=== PATIENT | female | born 1960 | race Caucasian/White ===

== ENCOUNTER 2018-11-03 05:42 | Inpatient (IN) | payer OTHER ==
[2018-10-25 11:47] LABS: HEMATOCRIT 43.3 % (37.0-47.0); HEMOGLOBIN 14.5 gm/dL (12.0-15.0); MCH 30.7 pg (26.0-34.0); MCHC 33.5 g/dL (28.0-37.0); MCV 91.5 fL (80.0-100.0); RBC 4.74 mil/uL (4.20-5.00); RDW 13.3 % (10.5-14.5); WBC 5.6 thou/uL (4.0-11.0)
[2018-10-25 11:48] LABS: URINE BILIRUBIN NEGATIVE (Negative); URINE BLOOD NEGATIVE (Negative); URINE CLARITY CLEAR; URINE COLOR YELLOW; URINE GLUCOSE-RANDOM* NEGATIVE (Negative); URINE KETONES NEGATIVE (Negative); URINE LEUKOCYTES-REFLEX TRACE (Negative); URINE NITRITE-REFLEX NEGATIVE (Negative); URINE PROTEIN (DIPSTICK) NEGATIVE (Negative); URINE SPECIFIC GRAVITY 1.025 (1.005-1.035)
[2018-10-25 11:57] LABS: ALBUMIN 3.9 g/dL (3.4-5.0); CALCIUM 9.5 mg/dL (8.5-10.1); CREATININE 0.7 mg/dL (0.6-1.0); POTASSIUM 4.5 mmol/L (3.5-5.1)
[2018-10-25 11:59] LABS: PROTIME 9.6 Seconds (9.3-11.4)
[2018-10-26 12:06] LABS: GLYCOHEMOGLOBIN (HGB A1C) 7.3 % (4.8-5.6)
[~2018-11-03] VITALS: Ht 165.1 cm; Wt 112.0 kg
--- NOTE | ~2018-11-03 | O ---
[facility] [place] [address] OPERATIVE REPORT Name: FLOYD VEGA Room #: 449-I ADM IN M.R.#: [id number] Admission: 11/03/18 ������������������ Attend Phys: Chris Holman MD Discharge: ������������������ Date of : 58 Report #: [id number] THIS REPORT FOR: //name// CC: Abhijit Holman DATE OF SERVICE: 11/03/2018 PREOPERATIVE DIAGNOSIS: Left hip osteoarthritis. POSTOPERATIVE DIAGNOSIS: Left hip osteoarthritis. PROCEDURE: Left total hip arthroplasty. SURGEON: Chris Holman MD MAINTENANCE MGR: None. ANESTHESIA: General. IMPLANTS: Varner and Nephew size 10 high offset Synergy press fit stem, size 52 R3 acetabular cup and a size 36+4 Oxinium head. ESTIMATED BLOOD LOSS: 150 mL. COMPLICATIONS: None. SPECIMENS: None. CONDITION UPON LEAVING THE OPERATING ROOM: Stable. INDICATIONS FOR PROCEDURE: The patient is a 58-year-old female with severe left hip osteoarthritis. She has failed conservative measures for this and after discussion with her, she elected for a left total hip arthroplasty. DESCRIPTION OF PROCEDURE: Risks, benefits, alternatives, and complications were discussed in detail with the patient including but not limited to risk of anesthesia; risk of damage to nerves, arteries, blood vessels; risk for infection, bleeding; risk for continued hip pain, leg length discrepancy, instability and need for reoperation. Informed consent was obtained from the patient. The left hip was appropriately marked in the preoperative holding area. IV Ancef was given for preoperative antibiotics. She was brought to the operating room and placed in the supine position on the operating room table. General anesthesia was induced without complication. She was then placed in the right lateral decubitus position with the left hip uppermost. Left hip and lower extremity were prepped and draped in normal sterile fashion. Timeout was [facility] [address] [place] [address] OPERATIVE REPORT Name: FLOYD VEGA Room #: 449-I [facility] IN .R.#: [id number] Admission: 11/03/18 ������������������ Attend Phys: Chris Holman MD Discharge: ������������������ Date of : 58 Report #: [id number] performed properly identifying the patient and procedure as well as the instrumentation, all in the operating room were in agreement. Standard posterior approach to the hip was made with 10 blade through the skin. Dissection was taken down the fascia with Bovie cautery and Purcell elevator was used to clean off the fascia. Fresh 10 blade was used to make a fascial incision and this was taken proximally and distally with curved Doss scissor. Charnley retractor was placed. Trochanteric bursa was taken down with Bovie cautery. Piriformis tendon was identified, tagged and taken down with Bovie. Short external rotators were also taken down with Bovie cautery. Capsulotomy was made and capsule ends were tagged for later repair. Hip was dislocated and there was extensive osteoarthritic change of the femoral head. Femoral neck cut was made 1 cm proximal to lesser trochanter based on preoperative templating and the femoral head removed. Deep acetabular retractors were placed labrum was removed sharply. Pulvinar was removed with Bovie cautery. Acetabulum was then sequentially reamed up to a size 52, at which point there was excellent bleeding cancellous bone. This was trialed with a size 51 and found to have a good fit. A final size 52 R3 acetabular cup was then placed and seated. One acetabular screw was placed for backup fixation and a polyethylene liner for a 36 head was placed. Attention was then turned to the femur, this was reamed and broached up to a size 10, at which point, a size 10 broach was . This was trialed with a high offset neck and a 36+0 head. Hip was reduced, taken through range of motion, found to be somewhat short on the left compared to the right and it was felt that we could make up for this with the final implant. Hip was dislocated, broach was removed and a final size 10 high offset Synergy press fit stem was placed and seated. This was then trialed with a 36+4 head. Hip was reduced, taken through range of motion, found to be stable, found to have good leg lengths. Hip was dislocated and a final size 36+4 Oxinium head was placed. Hip was reduced, taken through range of motion, found to be stable, found to have equal leg lengths. The wound was thoroughly irrigated with normal saline. Periarticular injection consisting of morphine, ropivacaine, epinephrine and Toradol was placed around the hip joint capsule. A gram of vancomycin was placed deep in the joint. The capsule and piriformis were repaired with 0 FiberWire. Fascia was closed with 0 Vicryl, skin was closed with 2-0 Vicryl and 3-0 Monocryl. Dermabond and a SUSIE dressing was applied. The patient tolerated this procedure well and went to the recovery room under the care of anesthesia postoperatively. ��������������������������������������������� ���������������������������������������� By: ��������������������������������������������� 1717 [id number] Chris Holman MD /christiana
[~2018-11-03 05:42] MED LIST: ALLOPURINOL 30300 M1 PO; ALTACE 1.25 M1.25 MG PO; BIAXIN 500 MG500 M2 PO; CYMBALTA60 MG PO; GLUCOPHAGE1000 MG PO; LEXAPRO20 MG PO; LIORESAL 10 MG10 MG PO; MOBIC15 MG PO; NEURONTIN 300300 M1 PO; NEURONTIN 400400 M1 PO; NEURONTIN600 MG PO; PREDNISONE10 MG PO; TRAMADOL 50 MG50 MG PO; TRILEPTAL 300300 MG PO; VENLAFAXINE HCL50 MG PO; VICTOZA0.6 MG/0.1
[2018-11-03 13:48] VITALS: BP 121/75
[2018-11-03 19:06] VITALS: BP 137/71
[2018-11-03 20:15] VITALS: BP 127/74
[2018-11-03 21:00] VITALS: BP 126/74
[2018-11-03 22:00] VITALS: BP 145/75
[2018-11-03 23:00] VITALS: BP 124/72
[2018-11-04 00:01] VITALS: BP 127/72
--- NOTE | 2018-11-04 02:12 | NUR ---
Assumed pt care at 1900. Pt A/OX4, pleasant mood. Hip replacement precautions reinforced. C/o pain LOP 08/25 medicated per EMAR with relief reported. Up with assist of 1 RW/GB,WBAT to LLE.SUSIE dsg in place C/D/I. VSS Resting O2 @ 2L/NC no distress. Fall px implemented.
[2018-11-04 04:05] VITALS: BP 115/68
[2018-11-04 05:39] LABS: HEMATOCRIT 31.4 % (37.0-47.0); HEMOGLOBIN 10.4 gm/dL (12.0-15.0); MCH 30.8 pg (26.0-34.0); MCHC 33.2 g/dL (28.0-37.0); MCV 92.7 fL (80.0-100.0); RBC 3.39 mil/uL (4.20-5.00); RDW 12.8 % (10.5-14.5); WBC 12.2 thou/uL (4.0-11.0)
[2018-11-04 07:39] VITALS: BP 119/70
[2018-11-04] MEDS ORDERED: ASPIR 8181 MG PO (11:54)
--- NOTE | 2018-11-04 13:35 | NUR ---
PT ADMITTED RELATED TO LT THR. CM REVIEWED CHART AND SPOKE WITH CARE TEAM. CM MET WITH PT AT BEDSIDED THIS DAY. PT IS A&O X4. CM ROLE INTRODUCED. PT INDICATED SHE LIVES IN A TRAILER WITH HER SPOUSE WITH 5 STEPS TO ENTER AND NO STEPS INSIDE. 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 PT WILL NEED A FWW ISSUED THROUGH [employer]. PT IS EATABLISHED WITH OP PT APPOINTMENT AT [facility] IN [place]. PT ANTICPATES RETURNING HOME THIS DAY. PT WAS ISSUED A FWW. NO OTHER CM INTERVENTION INDICATED. CASE CLOSED.
[2018-11-04 15:21] VITALS: BP 119/70
--- NOTE | 2018-11-04 16:00 | NUR ---
PATIENT ALERT AND ORIENTED. PATIENT DISCHARGED TO HOME IN STABLE CONDITION WITH DISCHARGE INSTRUCTIONS AND PRESCRIPTIONS AND ALL PERSONAL BELONGINGS. PATIENT AND BEDSIDE AND UPON DISCHARGE TRANSPORT PATIENT TO HOME.
== END 2018-11-04 16:01 | disposition home or self-care (01) | DRG 470 ==
LOC: TBA 05:42 → PRE 05:42 → 4W 05:42 → PRE 05:43 → 4W 18:34 → ENTRNSPT 11-04 15:46 → EDTRNSPTSTS 11-04 15:49 → 4W 11-04 16:01
PROVIDERS: ADMIT Orthopaedic Surgery
PROC: 0SRB06A Replacement of Left Hip Joint with Oxidized Zirconium on Polyethylene Synthetic Substitute, Uncemented, Open Approach (ICD-10-PCS; principal; 2018-11-03)
DX: M16.12 Unilateral primary osteoarthritis, left hip (principal)
CPT/HCPCS: 10047; 50010; 50101; 50382; 50414; 53000; 53078; 53368; 54118; 56524; 56527; 56528; 56530; 57095; 57103; 62110; 62900; 70005

== ENCOUNTER → 2018-11-18 | Day surgery (SDC) | payer OTHER ==
[~2018-11-18] MED LIST changes: +ASPIR 8181 MG PO
--- NOTE | ~2018-11-18 | O ---
[facility] [place] [address] OPERATIVE REPORT Name: FLOYD VEGA Room #: REG [facility]..#: [id number] Admission: 11/18/18 ������������������ Attend Phys: Chris Holman MD Discharge: ������������������ Date of : 58 Report #: [id number] THIS REPORT FOR: //name// CC: Abhijit Holman DATE OF SERVICE: 11/18/2018 PREOPERATIVE DIAGNOSIS: Left hip postoperative hematoma. POSTOPERATIVE DIAGNOSIS: Left hip postoperative hematoma. PROCEDURE: Evacuation of left hip hematoma. SURGEON: Chris Holman MD. SWITCH HOUSE OPERATOR: Adrianna Henley PA-C. ANESTHESIA: LMA. ESTIMATED BLOOD LOSS: 25 mL. COMPLICATIONS: None. SPECIMENS: None. CONDITION UPON LEAVING THE OPERATING ROOM: Stable. INDICATIONS FOR PROCEDURE: The patient is a 58-year-old female who is 2 weeks out from a left total hip arthroplasty. She has had continued serosanguineous drainage from her left hip incision and it was determined that she had a postop hematoma. After discussion with she and her , they elected for evacuation of left hip hematoma. DESCRIPTION OF PROCEDURE: Risks, benefits, alternatives, complications were discussed in detail with the patient including but not limited to risk of anesthesia; risk of damage to nerves, arteries, blood vessels; risk for infection, bleeding; risk for continued hip pain and need for reoperation. Informed consent was obtained from the patient. Left hip was appropriately marked in the preoperative holding area. IV Ancef was given for preoperative antibiotics. She was brought to the operating room and placed in the supine position on the operating room table. LMA anesthesia was induced without complication. She was then placed in the right lateral decubitus position with left hip uppermost. Left hip and lower extremity were prepped and draped in normal sterile fashion. Timeout was performed, properly identifying the patient and procedure as well as the instrumentation. All in the operating room were in [address] [address] OPERATIVE REPORT Name: FLOYD VEGA Room #: REG [facility] [place].#: [id number] Admission: 11/18/18 ������������������ Attend Phys: Chris Holman MD Discharge: ������������������ Date of : 58 Report #: [id number] agreement. The previous incision was then opened and upon entering the adipose layer, a large liquefying hematoma was evacuated. This was suctioned out and the fascial incision was visualized and evaluated. The fascial closure was intact and this was left alone. The potential space of the hematoma was then thoroughly irrigated with normal saline. There was no active bleeding noted. A Hemovac drain was placed. The adipose layer was closed with interrupted 0 Vicryl suture. Skin was closed with 2-0 Vicryl and skin abimael and a SUSIE dressing was applied. The patient tolerated this procedure well and went to recovery room under care of anesthesia postoperatively. ��������������������������������������������� ���������������������������������������� By: ��������������������������������������������� 1101 1116 Chris Holman MD /nt
[2018-11-18 08:51] LABS: HEMATOCRIT 33.1 % (37.0-47.0); HEMOGLOBIN 11.3 gm/dL (12.0-15.0); MCH 31.1 pg (26.0-34.0); MCHC 34.2 g/dL (28.0-37.0); RBC 3.64 mil/uL (4.20-5.00); RDW 13.7 % (10.5-14.5); WBC 6.4 thou/uL (4.0-11.0)
== END | disposition home or self-care (01) ==
LOC: OR 08:04
PROVIDERS: Student in an Organized Health Care Education/Training Program
DX: M96.840 Postprocedural hematoma of a musculoskeletal structure following a musculoskeletal system procedure (principal); M16.12 Unilateral primary osteoarthritis, left hip; Z96.642 Presence of left artificial hip joint; Z79.899 Other long term (current) drug therapy; Y83.8 Other surgical procedures as the cause of abnormal reaction of the patient, or of later complication, without mention of misadventure at the time of the procedure
CPT/HCPCS: 50010; 50101; 50382; 50414; 51412; 53078; 56528; 57095; 57103; 62110; 62900; 70005

== ENCOUNTER 2019-01-05 10:44 | Inpatient (IN) | payer OTHER ==
--- NOTE | ~2019-01-05 | O ---
[facility] [place] [address] OPERATIVE REPORT Name: FLOYD VEGA Room #: 432-P ADM IN M.R.#: [id number] Admission: 01/05/19 Attend Phys: Chris Holman MD Discharge: Date of : 58 Report #: [id number] THIS REPORT FOR: //name// CC: Abhijit Holman DATE OF SERVICE: 01/05/2019 PREOPERATIVE DIAGNOSIS: Painful left total hip arthroplasty with suspicion for loose femoral stem. POSTOPERATIVE DIAGNOSIS: Loose femoral stem, left total hip arthroplasty. PROCEDURE: Revision left total hip arthroplasty stem only. SURGEON: Chris Holman MD. HOUSE CARPENTER HELPER: Adrianna Henley PA-C. INDICATIONS FOR HOUSE CARPENTER HELPER: Throughout the case, extensive retraction and manipulation was required including dislocation and reduction of the hip. This was afforded to me by my medical assistant secretary. ANESTHESIA: LMA. IMPLANTS: Varner and Nephew size 13 high offset Synergy press-fit stem with a 36+0 Oxinium head. ESTIMATED BLOOD LOSS: 100 mL. COMPLICATIONS: None. SPECIMENS: None. CONDITION UPON LEAVING THE OPERATING ROOM: Stable. INDICATIONS FOR PROCEDURE: The patient is a 58-year-old female who is about 2 months out from a left total hip arthroplasty. She initially did well after her arthroplasty but had an episode where she was performing physical therapy and twisted and felt a pop in her hip. She had increasing groin pain and thigh pain since that time. CT scan was performed and was negative for fracture. However given her symptoms and history, it was consistent with loosening of her femoral stem and after discussion with her, she elected for revision total hip arthroplasty. DESCRIPTION OF PROCEDURE: Risks, benefits, alternatives, complications were [facility] [address] [place] [address] OPERATIVE REPORT Name: FLOYD VEGA Room #: 432-P ADM IN M.R.#: [id number] Admission: 01/05/19 Attend Phys: Chris Holman MD Discharge: Date of : 58 Report #: [id number] discussed in detail with the patient including but not limited to risk of anesthesia, risk of damage to nerves, arteries, blood vessels, risk for infection, bleeding, risk for continued hip pain, leg length discrepancy, instability and need for reoperation. Informed consent was obtained from the patient. Left hip was appropriately marked in the preoperative holding area. IV Ancef was given for preoperative antibiotics. She was brought to the operating room and placed in supine position on operating room table. LMA anesthesia was induced without complication. She was then placed in the right lateral decubitus position with the left hip uppermost. Left hip and lower extremity were prepped and draped in normal sterile fashion. Timeout was performed properly identifying the patient and procedure as well as the instrumentation. Standard posterior approach to the hip was made with 10 blade through the skin. Dissection was taken down to the fascia with Bovie cautery and fresh fascial incision was made with #10 blade. This was taken proximally and distally with curved Doss scissor. There was a seroma noted deep in the hip, but there are no signs of infection. The posterior capsule had actually healed to the greater trochanter and this was taken down with Bovie cautery. Hip was dislocated and the femoral head was removed. A slap hammer was placed on the femoral stem and this was easily backed out. There were no signs of bony ingrowth and there was fibrous tissue surrounding the proximal portion of the stem. It was felt that there was fibrous ingrowth and that there never would have been stability of this particular stem. After this, the femur was reamed and broached up to a size 13, at which point, the size 13 broach was stable, was trialed with a high offset neck and a 36+0 head. Hip was reduced, taken through range of motion, found to be stable, found to have equal leg lengths. Hip was dislocated. Broach was removed and final size 13 high offset Synergy press fit stem was placed. This was then trialed again with a 36+0 head. Hip was reduced, taken through range of motion, found to be stable, found to have equal leg lengths. Hip was dislocated one last time and a final 36+0 Oxinium head was placed. Hip was reduced, taken through range of motion, found to be stable, found to have equal leg lengths. A gram of vancomycin was placed deep in the joint. Periarticular injection consisting of morphine, ropivacaine, epinephrine and Toradol was placed around the hip joint capsule. The capsule was repaired with 0 FiberWire. Deep drain was placed. Fascia was closed with 0 Vicryl, skin was closed with 2-0 Vicryl and skin staple. Soft dressing of SUSIE dressing was applied. The patient tolerated this procedure well and went to recovery room under care of anesthesia postoperatively. By: [id number] Chris Holman MD /christiana
[2019-01-05 13:29] VITALS: BP 153/94
[2019-01-05 15:46] VITALS: BP 131/75
[2019-01-05 17:32] VITALS: BP 144/71
--- NOTE | 2019-01-05 18:23 | NUR ---
PT TRANSFERED TO 432 IN BED FROM PACU. A&OX4, IV INTACT IN L HAND. SUSIE DRSG C/D/I. HEMOVAC INTACT. PT MEDICATED FOR MED AT THIS TIME. TOLERATING PO/DIET WELL. PT HAS VOIDED POST OP PER BEDPAN. IV CONT FLUIDS AND IVAB STARTED. WILL CONT POC
[2019-01-05 19:15] VITALS: BP 134/63
--- NOTE | 2019-01-05 21:43 | NUR ---
BLOOD SUGAR 343, PT CLAIMING IT IS HIGH BECAUSE SHE JUST ATE CANDY BAR, WILL RECHECK IT.
[2019-01-05 23:23] VITALS: BP 127/70
--- NOTE | 2019-01-06 02:43 | NUR ---
PT RESTLESS AT START OF SHIFT, PAIN NOT REALLY CONTROLLED. PAIN REGIMEN TONIGHT INCLUDES ALTERNATING HYDROXYZINE AND OXY. FINALLY ABLE TO GET SOME SLEEP, ABDUCTOR WEDGE WAS APPLIED. TEDS/SCDS ON, HIP PRECAUTIONS OBSERVED. VOIDING PER BEDPAN TONIGHT, REFUSED TO GET UP TO VOID, HIP DRESSING TO LEFT HIP CDI, HEMOVAC PATENT, HOURLY ROUNDING, MONITORED.
[2019-01-06 03:30] VITALS: BP 131/72
[2019-01-06 05:32] LABS: HEMOGLOBIN 11.4 gm/dL (12.0-15.0); MCH 30.4 pg (26.0-34.0); MCHC 32.6 g/dL (28.0-37.0); RBC 3.76 mil/uL (4.20-5.00); RDW 13.3 % (10.5-14.5); WBC 11.6 thou/uL (4.0-11.0)
--- NOTE | 2019-01-06 06:17 | NUR ---
DRAIN PULLED, PRESSURE APPLIED DUE TO BLEEDING NOTED TO ONE SITE, THEN SITE WAS COVERED WITH GAUZE AND TEGADERM. PT TOLERATED PROCEDURE.
[2019-01-06 07:50] VITALS: BP 134/79
--- NOTE | 2019-01-06 13:24 | NUR ---
PT ADMITTED RELATED TO LT THR REVISION. CM REVIEWED CHART AND SPOKE WITH CARE TEAM. CM MET WITH PT AT BEDSIDE THIS DAY. PT IS A&O X4. CM ROLE INTRODUCED. PT INDICATED SHE LIVES IN A MOBILE HOME WITH HER SPOUSE WITH 5 STEPS TO ENTER AND NO STEPS INSIDE. 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 PT ALSO HAS CPAP. PT INDICATED SHE IS ESTABLISHED WITH OP PT AT [facility] IN [place].PT ANTICIPATES DISHCARGING HOME TOMORROW. CM TO FOLLOW INDICATED WITH DC PLANNING.
[2019-01-06 16:51] VITALS: BP 124/56
[2019-01-06 19:24] VITALS: BP 146/67
--- NOTE | 2019-01-06 20:05 | NUR ---
ASSUMED CARE OF PATIENT AT 0715, PATIENT ALERT AND ORIENTED X4. PATIENT UP WITH ASSIST X 1 WITH WALKER TO BATHROOM, AND UP TO CHAIR X 2 THIS SHIFT. PATIENT WORKED WITH PHYSICAL THERAPY X 2 THIS SHIFT. PAIN LEVEL CONSTANT, RECEIVING OXYCODONE 1 TABLET, NORCO, AND NEW ORDER FOR OXYCODONE 2 TABS AND MS CONTIN 15MG BID SCHEDLUED RECEIVED THIS SHIFT. PATIENT HAD LEFT HIP REVISION, WITH SUSIE DRESSING IN PLACE, C/D/I. PATIENT HAS LEFT HAND IV IN PLACE, IV FLUIDS D/C THIS AM AFTER 2ND BAG COMPLETED. ABAD HOSE, ABDUCTION PILLOW, EDUCATION ON HIP PRECAUTIONS THIS SHIFT. BLOOD SUGAR MONITORING ORDERED, CONTROLLED BY DIET. POSSIBLE DISCHARGE TOMORROW. WILL CONTINUE TO MONITOR.
[2019-01-07 05:03] VITALS: BP 134/66
[2019-01-07 05:51] LABS: HEMOGLOBIN 11.7 gm/dL (12.0-15.0); MCH 30.3 pg (26.0-34.0); MCHC 32.5 g/dL (28.0-37.0); MCV 93.2 fL (80.0-100.0); RBC 3.86 mil/uL (4.20-5.00); RDW 13.4 % (10.5-14.5); WBC 9.3 thou/uL (4.0-11.0)
[2019-01-07 07:40] VITALS: BP 112/64
--- NOTE | 2019-01-07 07:49 | NUR ---
ASSUMED CARE OF PT @1900. PT A&OX4. ASSESSMENT BENIGN. DRESSING ON LEFT HIP DRY, CLEAN AND INTACT. PT C/O OF 08/25 PAIN. USES A WALKER TO THE BATHROOM WITH 1STANDBY. USES THE CALL SUAZO APPROPRAITELY. CALL SUAZO WITHIN REACH
--- NOTE | 2019-01-07 14:27 | NUR ---
PT AWAITING D/C NOW THAT CYNDEE IN THERAPY DISMISSED HER. LET HER KNOW D/C COULD TAKE A BIT. SHE'S VISITING W/SPOUSE AND IS SATISFIED W/DISCHARGE WHEN ABLE
[2019-01-07 15:39] VITALS: BP 114/76
--- NOTE | 2019-01-07 16:38 | NUR ---
CARE TEAM INDICATED THAT PT IS STILL HAVING LOTS OF PLAIN. NO DC TODAY. PT IS ESTABLISHED WITH OP PT AND HAS ALL NEEDED DME. PT WILL HAVE NO NEEDS UPON DC.
--- NOTE | 2019-01-07 16:40 | NUR ---
FLOATING TO ANOTHER FLOOR, GAVE REPORT TO FOLLOWING RN
[2019-01-07 19:05] VITALS: BP 148/76
--- NOTE | 2019-01-08 01:10 | NUR ---
ASSUMED CARE OF PT @1900. ASSESSMENT COMPLETED. PT C/O OF 08/25 PAIN AND WAS MEDICATED ORDERED. R HIP DRESSING; CLEAN, DRY AND INTACT. PT IS ABLE TO AMBULATE WITH A WALKER AND STANDBY ASSIST. CALL APPROPRAITELY. CALL SUAZO WITHIN REACH
[2019-01-08 04:35] VITALS: BP 141/94
[2019-01-08 05:03] LABS: HEMATOCRIT 35.7 % (37.0-47.0); HEMOGLOBIN 11.7 gm/dL (12.0-15.0); MCH 30.4 pg (26.0-34.0); MCHC 32.8 g/dL (28.0-37.0); MCV 92.7 fL (80.0-100.0); RBC 3.85 mil/uL (4.20-5.00); RDW 13.4 % (10.5-14.5); WBC 6.9 thou/uL (4.0-11.0)
[2019-01-08 07:31] VITALS: BP 119/73
[2019-01-08] MEDS ORDERED: ASPIR 8181 MG PO (08:30)
[2019-01-08] MEDS ORDERED: PERCOCET 10-321 EACH PO (08:31)
[2019-01-08] MEDS ORDERED: OXYCONTIN10 M1 PO (08:31)
[2019-01-08 12:12] VITALS: BP 119/73
--- NOTE | 2019-01-08 12:46 | NUR ---
ASSUMED CARE OF PATIENT AT 0715, PATIENT ALERT AND ORIENTED X 4. PATIENT UP WITH SBA WITH WALKER. PATIENT HAS LEFT HIP SUSIE DRESSING C/D/I. PATIENT C/O PAIN LEFT HIP AREA, PAIN LEVEL 3/10. OXYCODONE 2 TABS GIVEN THIS AM, WITH GOOD RELIEF. PATIENT HAD LEFT HAND IV, REMOVED PRIOR TO DISCHARGE. PATIENT DISCHARGE TO HOME. ALL DISCHARGE PAPERWORK AND ALL PERSONAL BELONGINGS SENT WITH THE PATIENT. HERE TO TRANSPORT PATIENT HOME.
== END 2019-01-08 13:37 | disposition home or self-care (01) | DRG 468 ==
LOC: 4E 10:44 → TBA 10:44 → 4E 15:18
PROVIDERS: ADMIT Orthopaedic Surgery
DX: T84.031A Mechanical loosening of internal left hip prosthetic joint, initial encounter (principal); G47.33 Obstructive sleep apnea (adult) (pediatric); E11.9 Type 2 diabetes mellitus without complications; G89.29 Other chronic pain; Z79.899 Other long term (current) drug therapy; Y83.8 Other surgical procedures as the cause of abnormal reaction of the patient, or of later complication, without mention of misadventure at the time of the procedure; Y92.89 Other specified places as the place of occurrence of the external cause
CPT/HCPCS: 10783; 50010; 50101; 50382; 50414; 53000; 53078; 54118; 55389; 56524; 56527; 56528; 56530; 57095; 57103; 62110; 62900; 70005

== ENCOUNTER 2019-03-16 20:04 | Emergency (ER) | payer OTHER ==
[~2019-03-16] VITALS: Ht 165.1 cm; Wt 112.5 kg
[~2019-03-16 20:04] MED LIST changes: +OXYCONTIN10 M1 PO; +PERCOCET 10-321 EACH PO
[2019-03-16 21:23] LABS: ABSOLUTE NEUTROPHILS 6.8 thou/uL (1.4-8.2); BASOPHILS 0.3 % (0.0-2.0); EOSINOPHILS 0.8 % (0.0-3.0); HEMATOCRIT 41.3 % (37.0-47.0); HEMOGLOBIN 13.7 gm/dL (12.0-15.0); LYMPHOCYTES 5.7 % (24.0-44.0); MCH 30.3 pg (26.0-34.0); MCHC 33.3 g/dL (28.0-37.0); MONOCYTES 6.7 % (1.0-8.0); PLATELET COUNT 289 thou/uL (150-400); POLYS 86.5 % (36.0-66.0); RBC 4.53 mil/uL (4.20-5.00); RDW 13.8 % (10.5-14.5); WBC 7.9 thou/uL (4.0-11.0)
[2019-03-16 21:36] LABS: ANION GAP 10 mmol/L (7-16); BUN 11 mg/dL (7-18); CALCIUM 9.3 mg/dL (8.5-10.1); CHLORIDE 100 mmol/L (98-107); CO2 26 mmol/L (21-32); CREATININE 0.5 mg/dL (0.6-1.0); GLUCOSE 175 mg/dL (74-106); SODIUM 136 mmol/L (136-145)
[2019-03-16 21:47] LABS: ALBUMIN 3.8 g/dL (3.4-5.0); LIPASE 114 U/L (73-393); SGOT 35 U/L (15-37); SGPT 41 U/L (30-65); TOTAL BILIRUBIN 0.6 mg/dL (<0.1-1.0); TOTAL PROTEIN 7.6 g/dL (6.4-8.2); TROPONIN-I <0.06 ng/mL (<0.06)
[2019-03-16] MEDS ORDERED: PROMS25 WY RECTAL (22:35)
[2019-03-16] MEDS ORDERED: NORFLEX100 MG PO (22:35)
[2019-03-16 23:08] VITALS: BP 143/76
--- NOTE | 2019-03-17 08:46 | EKG ---
[address] [address] ELECTROCARDIOGRAM REPORT Name: FLODY VEGA [id number] Admission: 03/16/19 Attend Phys: Discharge: 03/16/19 Date of : 58 Report #: [id number] THIS REPORT FOR: //name// [facility] ED Test Date: 2019-03-16 Test Time: 20:24:27 Pat Name: FLOYD VEGA Department: Room: Gender: F Financial Representative: YIFAN : 1960 Requested By: River Zepeda Order Number: [id number] MD: Danny Vyas Measurements Intervals [place] Rate: 93 P: 52 NM: 137 QRS: 24 QRSD: 94 T: 31 QT: 362 QTc: 451 Interpretive Statements Sinus rhythm Normal tracing No previous ECG available for comparison Electronically Signed On 03-17-2019 8:46:30 CDT by Danny Vyas [email or web address] <ELECTRONICALLY SIGNED> By: Danny Vyas MD, [facility] 03/17/19 0846 23 23 Danny Vyas MD, FACC /EPI
== END 2019-03-16 23:12 | disposition home or self-care (01) ==
LOC: ER 20:04
PROVIDERS: Emergency Medicine
DX: R51 Headache (principal); R11.2 Nausea with vomiting, unspecified; F32.9 Major depressive disorder, single episode, unspecified; G47.30 Sleep apnea, unspecified; Z98.890 Other specified postprocedural states; Z85.828 Personal history of other malignant neoplasm of skin; Z98.84 Bariatric surgery status; Z87.891 Personal history of nicotine dependence

== ENCOUNTER 2019-03-26 19:16 | Inpatient (IN) | payer OTHER ==
[~2019-03-26] VITALS: Ht 165.1 cm; Wt 118.8 kg
--- NOTE | ~2019-03-26 | HC ---
[facility] [place] [address] CONSULTATION Name: FLOYD VEGA Room #: 443-P ADM IN M.R.#: [id number] Admission: 03/26/19 Attend Phys: Jerad Parsons MD Discharge: Date of : 58 Report #: [id number] THIS REPORT FOR: //name// CC: RENEA physician/PCP Jerad Parsons DATE OF SERVICE: 03/27/2019 REASON FOR CONSULTATION: Left shoulder pain postoperatively, intractable. HISTORY OF PRESENT ILLNESS: The patient underwent left rotator cuff repair by my partner, Dr. Dontrell Arevalo on Thursday. She subsequently has significant amount of pain after the block wore off. She had tried decreasing her oxycodone interval, tramadol and ibuprofen without any relief. She went to the Emergency Department and was admitted. She denied any trauma and is in a sling. REVIEW OF SYSTEMS: NEUROLOGIC: Denies numbness or tingling. MUSCULOSKELETAL: See HPI. PAST MEDICAL HISTORY: Significant for history of bipolar, sleep apnea, diet-controlled diabetes. MEDICATIONS: Duloxetine, meloxicam, gabapentin, oxycodone, promethazine, Norflex, tramadol, aspirin and ibuprofen. SOCIAL HISTORY: She is right hand dominant. PAST SURGICAL HISTORY: Five C-sections, bilateral knee arthroscopies, right shoulder rotator cuff repair 07/05/2018, left thumb arthroplasty in 2015, gastric bypass, C6-C7 foraminotomy and trigger thumb release. LABORATORY DATA: Done on the date of admission, white blood cell count 9.8, hemoglobin 11.8, hematocrit 35.6, platelet count 369. Chemistry is grossly normal. PHYSICAL EXAMINATION: GENERAL: She is alert and oriented. She is in obvious moderate amount of distress due to her pain. She is well-developed, well-nourished female. She converses well despite her pain level. VITAL SIGNS: Most recent vital signs show temperature of 36.3, heart rate is 64, respiratory rate 18, blood pressure 148/98 and pulse oximetry is 96% on room air. EXTREMITIES: Examination of her left upper extremity, her left upper extremity is in a sling. The wound looks appropriate. She has appropriate swelling. There is no evidence of compartment syndrome. Compartments [place] [address] CONSULTATION Name: FLOYD VEGA Room #: 3 ADM IN M.R.#: [id number] Admission: 03/26/19 Attend Phys: Jerad Parsons MD Discharge: Date of : 58 Report #: [id number] able to make a fist, full extension, abduction and adduction is intact in her hand. She moves her fingers without difficulty. IMPRESSION AND PLAN: Status post left rotator cuff repair with intractable pain. I have added Toradol to this patient and she is currently on fentanyl being managed by her medical doctors, they may consider a trial of oral Dilaudid once her pain is controlled with IV pain medications. I have discussed this with Dr. Irina Perkins's PA and they will see her tomorrow. Questions were encouraged and answered to the best of my ability. By: [id number] Andra Reynolds MD /nt
[~2019-03-26 19:16] MED LIST changes: +NORFLEX100 MG PO; +PROMS25 WY RECTAL
[2019-03-26 19:17] VITALS: BP 156/72
[2019-03-26 23:51] LABS: CALCIUM 9.4 mg/dL (8.5-10.1); CREATININE 0.7 mg/dL (0.6-1.0)
[2019-03-26 23:54] LABS: HEMATOCRIT 35.6 % (37.0-47.0); HEMOGLOBIN 11.8 gm/dL (12.0-15.0); MCH 30.4 pg (26.0-34.0); MCHC 33.2 g/dL (28.0-37.0); MCV 91.8 fL (80.0-100.0); RBC 3.88 mil/uL (4.20-5.00); WBC 9.8 thou/uL (4.0-11.0)
[2019-03-27] VITALS (7 sets, daily range): BP systolic 120–148; BP diastolic 66–98
--- NOTE | 2019-03-27 07:33 | NUR ---
ASSUMED PT CARE ON 03/27/19 AT ABOUT 30 AFTER 0000. PT ENTERS ROOM WITH . PT HAS COMPLAINTS OF PAIN AT A LEVEL ABOVE 10. WE CALLED THE NURSE PRACTITIONER FOR THE NIGHT AND SHE PUT IN ORDERS FOR A CONTINUOUS PULSE OX AND PUT IN ORDERS TO CARRY OUT WITH THE MEDICATION. ORDERS CARRIED OUT. PT IS ASLEEP IN THE ROOM. WENT IN TO REPOSITION PT AND PT NEEDED TO GO TO THE RESTROOM THEN COMPLAINED OF PAIN. PAIN MEDICATION ADMINISTERED WHEN THE PT ASKED FOR IT. CONTINUED TO MONITOR.
--- NOTE | 2019-03-28 05:49 | NUR ---
PATIENT ALERT AND ORIENTED X4. DRESSING ON L SHOULDER INTACT. IMMOBILIZER ON L UPPER EXT. D/T PATIENT REQUEST ALL 4 SIDE RAILS ARE UP. UP TO BATHROOM WITH ASSIST. C/O PAIN. PO AND IV PAIN MED GIVEN. SLEPT OFF AND ON DURING NIGHT.
[2019-03-28 07:54] VITALS: BP 129/72
[2019-03-28] MEDS ORDERED: OXYCODONE HCL10 MG PO (10:09)
[2019-03-28] MEDS ORDERED: OXYCONTIN15 MG PO (10:09)
[2019-03-28] MEDS ORDERED: IBUPROFEN 400400 M2 PO (10:10)
[2019-03-28 20:20] VITALS: BP 126/62
[2019-03-29 07:55] VITALS: BP 123/73
--- NOTE | 2019-03-29 08:15 | NUR ---
Assumed pt care at 1900. Pt A/OX4,VSS. C/o pain to left shoulder 7/10 medicated around the clock and verbalizes relief this morning 2/10 w/o movement. Pt is up ad kamilah. Immobilizer in place on left shoulder. Patients call as needed.
--- NOTE | 2019-03-29 15:14 | NUR ---
ASSESSMENT-PT LIVES IN A MOBILE HOME WITH HER . PT WILL FOLLOW-UP WITH DR IN 10 DAYS AND THEN THEY WILL DECIDE IF SHE IS READY FOR OUTPT THERAPY AT THAT TIME. PT PLANS TO USE [facility]. PT HAS A C-PAP, TOILET RISER AT HOME ALREADY. ABLE TO ASSIST SOME AT HOME. PT STILL HAVING PAIN AND WANTS TO MAKE SURE IT SI CONTROLLED ON ORAL MEDS BEFORE DISCHARGE. FOLLOWING TO ASSIST WITH DC PLANNING.
[2019-03-29 16:00] VITALS: BP 113/80
[2019-03-29 19:23] VITALS: BP 126/67
--- NOTE | 2019-03-29 19:45 | NUR ---
ASSUMED CARE OF PATIENT AT 0715, PATIENT ALERT AND ORIENTED X 4. PATIENT UP AD DEE, WITH IMMOBILIZER TO LEFT SHOULDER. PATIENT CONTINUES TO C/O PAIN LEVEL NOT CONTROLLED WELL WITH PO MEDS. THIS RN SPOKE WITH JOSESITO/OIL PUMPER FOR ORTHO WHO PUT ORDER IN FOR POLAR CARE TO ASSIST WITH PAIN LEVEL. PATIENT RECEIVED OXYCONTIN SCHEDULED PRN OXYCODONE EVERY 4 HOURS. RIGHT AC IV IN PLACE, AND REMAINS PATENT. POLAR PACK WILL BE APPLIED ON NIGHTSHIFT. WILL CONTINUE TO MONITOR.
--- NOTE | 2019-03-30 03:30 | NUR ---
ASSUMED PT CARE ON 03/29/19 AT 1925. PT IS PLEASANT UP INTRODUCTION. PT IS ALERT AND ORIENTED X 4. PT SEEMS EXCITED TO SEE FAMILIAR FACES. PT STATES THAT SHE IS IN PAIN SO PAIN MEDICATION WAS ADMINISTERED WITH HER SCHEDULED MEDICATION. I APPLIED ORACIO WRAP AND THE POLAR PACK TO HER LEFT ARM. I EDUCATED THE PATIENT ON HOW TO USE HER POLAR PACK. PT IS RESTING IN HER ROOM. PT STATES THAT HER PAIN HAS BEEN CONTROLLED BETTER SINCE COMING TO THE HOSPITAL. PT CALLS FOR HELP IN THE MIDDLE OF THE NIGHT TO USE THE RESTROOM. PT IS ASKING FOR HER PAIN MEDICATION. PAIN MEDICATION ADMINISTERED AND PT IS IN ROOM ON HER PHONE. WILL CONTINUE TO MONITOR.
--- NOTE | 2019-03-30 07:34 | NUR ---
ASSUMED CARE OF PATIENT AT 0715, PATIENT ALERT AND ORIENTED X 4. PATIENT UP AD DEE, WITH IMMOBILZER TO LEFT SHOULDER. PATIENT CONTINUES TO C/O PAIN LEVEL NOT CONTROLLED WELL WITH PO MEDS. THIS RN SPOKE WITH JOSESITO/SENIOR CONTROLLER WHO PUT ORDER IN FOR POLAR CARE TO ASSIST WITH PAIN LEVEL. PATIENT RECEIVED OXYCONTIN SCHEDULED PRN OXYCODONE EVERY 4 HOURS/PRN. RIGHT AC IV IN PLACE, AND REMAINS PATENT. POLAR PACK APPLIED ON NIGHTSHIFT. WILL CONTINUE TO MONITOR.
[2019-03-30 08:20] VITALS: BP 135/74
[2019-03-30 11:22] LABS: HEMATOCRIT 35.6 % (37.0-47.0); HEMOGLOBIN 11.7 gm/dL (12.0-15.0); MCH 30.2 pg (26.0-34.0); MCHC 32.7 g/dL (28.0-37.0); MCV 92.2 fL (80.0-100.0); RBC 3.87 mil/uL (4.20-5.00); RDW 13.6 % (10.5-14.5); WBC 7.4 thou/uL (4.0-11.0)
[2019-03-30 11:37] LABS: CALCIUM 9.7 mg/dL (8.5-10.1); CREATININE 0.6 mg/dL (0.6-1.0); MAGNESIUM 1.9 mg/dL (1.8-2.4)
[2019-03-30 16:07] VITALS: BP 135/74
--- NOTE | 2019-03-30 17:19 | NUR ---
ASSUMED CARE OF PATIENT AT 0715, PATIENT ALERT AND ORIENTED X 4. UP AD DEE WITH IMMOBILIZER TO LEFT SHOULDER. PAIN BETTER MANAGED TODAY, SINCE POLAR PACK APPLIED LASTNIGHT. PATIENT RECEIVED OXYCODONE 10 MG X 2 THIS SHIFT, AND OXYCONTIN 15MG X [address] SERVIN SAW THE PATIENT TODAY, AND WILL WRITE DISCHARGE ORDERS. PATIENT HAS 6 SUTURES TO LEFT SHOULDER, C/D/I. RIGHT AC IV REMOVED PRIOR TO DISCHARGE. THIS RN WENT OVER ALL DISCHARGE PAPERWORK AND SENT ALL PERSONAL BELONGINGS WITH THE PATIENT. ALEXIS MENSAH INSTRUCTED TO THE PATIENT. HERE TO TRANSPORT THE PATIENT HOME.
== END 2019-03-30 17:53 | disposition home or self-care (01) | DRG 948 ==
LOC: ER 19:16 → EROBS 23:26 → 4S 23:26 → ENTRNSPT 03-30 16:21 → 4S 03-30 17:53
PROVIDERS: Internal Medicine; Physician Assistant; ADMIT Hospitalist
DX: G89.18 Other acute postprocedural pain (principal); M25.512 Pain in left shoulder; M19.90 Unspecified osteoarthritis, unspecified site; F41.9 Anxiety disorder, unspecified; F31.9 Bipolar disorder, unspecified; G47.33 Obstructive sleep apnea (adult) (pediatric); E11.9 Type 2 diabetes mellitus without complications; Z98.891 History of uterine scar from previous surgery; Z98.84 Bariatric surgery status; Z79.82 Long term (current) use of aspirin; Z79.899 Other long term (current) drug therapy; Z87.891 Personal history of nicotine dependence; Z99.81 Dependence on supplemental oxygen
CPT/HCPCS: 10195; 51320; 52001; 52282

== ENCOUNTER 2019-07-06 10:50 | Inpatient (IN) | payer OTHER ==
[2019-06-23 13:15] LABS: HEMATOCRIT 39.2 % (37.0-47.0); HEMOGLOBIN 12.9 gm/dL (12.0-15.0); MCH 30.4 pg (26.0-34.0); MCHC 32.8 g/dL (28.0-37.0); MCV 92.9 fL (80.0-100.0); RBC 4.23 mil/uL (4.20-5.00); RDW 13.5 % (10.5-14.5); URINE BILIRUBIN NEGATIVE (Negative); URINE BLOOD NEGATIVE (Negative); URINE CLARITY CLEAR; URINE COLOR YELLOW; URINE GLUCOSE-RANDOM* 2+ (Negative); URINE KETONES NEGATIVE (Negative); URINE LEUKOCYTES-REFLEX NEGATIVE (Negative); URINE NITRITE-REFLEX NEGATIVE (Negative); URINE PROTEIN (DIPSTICK) NEGATIVE (Negative); URINE SPECIFIC GRAVITY 1.025 (1.005-1.035); URINE UROBILINOGEN 0.2 E.U./dl (0.2-1.0); WBC 6.5 thou/uL (4.0-11.0)
[2019-06-23 13:30] LABS: ALBUMIN 3.9 g/dL (3.4-5.0); CREATININE 0.7 mg/dL (0.6-1.0); POTASSIUM 4.3 mmol/L (3.5-5.1)
[2019-06-24 01:09] LABS: GLYCOHEMOGLOBIN (HGB A1C) 7.4 % (4.8-5.6)
--- NOTE | 2019-06-29 12:42 | EKG ---
[facility] [place] [address] [address] [place] [address] ELECTROCARDIOGRAM REPORT Name: FLOYD VEGA Room #: PRE IN M.R.#: [id number] Admission: Attend Phys: Chris Holman MD Discharge: Date of : 58 Report #: [id number] THIS REPORT FOR: cc: Abhijit Rosado MD, David R. MD Lundgren, Craig H. MD [facility] ~ THIS REPORT FOR: //name// [facility] Test Date: 2019-06-23 Test Time: 13:09:48 Pat Name: FLOYD VEGA Department: Room: Gender: Postpartum Rn: Lasha LOUISE : 1960 Requested By: Chris Holman Order Number: [id number] MD: Danny Vyas Measurements Intervals [place] Rate: 84 P: 58 MS: 158 QRS: 14 QRSD: 102 T: 11 QT: 399 QTc: 472 Interpretive Statements Sinus rhythm No significant abnormality Compared to ECG 03/16/2019 20:24:27 No significant changes Electronically Signed On 06-24-2019 8:54:04 PATENT SEARCHER by Danny Vyas [email or web address] <ELECTRONICALLY SIGNED> By: Danny Vyas MD, [facility] 06/24/19 0854 [id number] [id number] Danny Vyas MD, [facility] /EPI
[~2019-07-06] VITALS: Ht 165.1 cm; Wt 112.0 kg
[~2019-07-06 10:50] MED LIST changes: +IBUPROFEN 400400 M2 PO; +MELOXICAM15 MG PO; +OXYCODONE HCL10 MG PO; +OXYCONTIN15 MG PO; +VENLAFAXINE HCL25 MG PO
[2019-07-06 12:38] VITALS: BP 129/79
[2019-07-06 18:35] VITALS: BP 172/87
[2019-07-06 19:35] VITALS: BP 121/61
--- NOTE | 2019-07-06 20:09 | NUR ---
Pt came to [facility] from recovery approx 1700. Admission completed. Pt states her pain level is high. Prn pain meds administered. IVF infusing. Dressing c/d/i. Polar pack in place. Family at bedside. Home med to be send to pharmacy by sydney RN for identification. Call light within reach. Fall precautions in place.
[2019-07-06 20:35] VITALS: BP 127/65
[2019-07-06 21:35] VITALS: BP 128/63
[2019-07-06 23:35] VITALS: BP 112/68
[2019-07-07 00:31] VITALS: BP 128/63
[2019-07-07 05:02] VITALS: BP 120/69
--- NOTE | 2019-07-07 05:06 | NUR ---
ASSESSED AT START OF SHIFT PT A&OX4. IV INTACT AND FLUIDS INFUISING. FALL PREC IN PLACE. PT UP WITH ASSISTX1 TO BSC. PAIN MEDS GIVEN THIS SHIFT. DRESSING INTACT AND SCD'S IN PLACE. WILL CONT WITH POC TILL EOS.
[2019-07-07 06:39] LABS: HEMATOCRIT 34.4 % (37.0-47.0); MCH 30.2 pg (26.0-34.0); MCHC 31.9 g/dL (28.0-37.0); MCV 94.5 fL (80.0-100.0); RBC 3.64 mil/uL (4.20-5.00); RDW 13.2 % (10.5-14.5); WBC 12.8 thou/uL (4.0-11.0)
[2019-07-07 08:23] VITALS: BP 127/68
[2019-07-07] MEDS ORDERED: ASPIR 8181 MG PO (10:27)
[2019-07-07 14:23] VITALS: BP 127/68
--- NOTE | 2019-07-07 15:16 | NUR ---
Assumed care of pt at 0700. Pt a&ox4. Pt states her pain has not been controlled overnight. Provider aware. Pain medications modified. Polar pack in place. ABAD hose and SCDs in place. Dressing d/c/i. Fall precautions in place. Pt discharged to home.
--- NOTE | 2019-07-13 12:28 | O ---
[facility] [place] [address] [address] [place] [address] OPERATIVE REPORT Name: FLOYD VEGA Room #: 444-P [facility] IN M.R.#: [id number] Admission: 07/06/19 Attend Phys: Chris Holman MD Discharge: 07/07/19 Date of : 58 Report #: [id number] THIS REPORT FOR: cc: Abhijit Rosado MD, David R. MD Abraham,Chris Leo MD ~ CC: Abhijit Holman DATE OF SERVICE: 07/06/2019 PREOPERATIVE DIAGNOSES: 1. Right knee osteoarthritis. 2. Morbid obesity with body mass index of 41. POSTOPERATIVE DIAGNOSES: 1. Right knee osteoarthritis. 2. Morbid obesity with body mass index of 41. PROCEDURE: Right total knee arthroplasty using Navio robotic assistance. SURGEON: Chirs Holman MD. DEAN OF GRADUATE STUDIES: Adrianna Henley PA-C. INDICATIONS FOR DEAN OF GRADUATE STUDIES: Throughout the case, extensive retraction and manipulation of the knee was required. This was afforded to me by my cashier assistant. ANESTHESIA: LMA with an adductor canal block. IMPLANTS: [employer]hew size 5, Journey II BCS Oxinium femur, size 3 tibia, size 12 polyethylene and size 32 patella. TOURNIQUET TIME: 57 minutes. ESTIMATED BLOOD LOSS: 25 mL. COMPLICATIONS: None. SPECIMENS: None. CONDITION UPON LEAVING THE OPERATING ROOM: Stable. INDICATIONS FOR PROCEDURE: The patient is a 59-year-old female with right knee osteoarthritis. She had failed conservative measures for this and after discussion with her, she elected for right total knee arthroplasty. [facility] [address] [address] OPERATIVE REPORT Name: FLOYD VEGA Room #: 444-P [facility] IN M.R.#: [id number] Admission: 07/06/19 Attend Phys: Chris Holman MD Discharge: 07/07/19 Date of : 58 Report #: [id number] DESCRIPTION OF PROCEDURE: Risks, benefits, alternatives, complications were discussed in detail with the patient including but not limited to risk of anesthesia, risk of damage to nerves, arteries, blood vessels, risk for infection, bleeding, risk for continued knee pain, need for reoperation. Informed consent was obtained from the patient. Right knee was appropriately marked in the preoperative holding area. IV Ancef was given for preoperative antibiotics. Adductor canal block was placed by anesthesia. She was brought to the operating room and placed in supine position on operating room table. LMA anesthesia was induced without complication. Tourniquet was placed on the right thigh. Right lower extremity was prepped and draped in normal sterile fashion. Timeout was performed, properly identifying the patient and procedure as well as the instrumentation. All in the operating room were in agreement. Right lower extremity was exsanguinated, tourniquet was inflated. Tourniquet time was 57 minutes. Standard midline approach to knee was made with #10 blade through the skin. Dissection was taken down sharply to the fascia and deep flaps were developed medially and laterally. First, #10 blade was used to make a medial parapatellar arthrotomy and then knee was inspected. There was tricompartmental osteoarthritis. ACL and PCL were removed sharply. Reference pins were placed in the femur and the tibia and the knee was then digitally mapped using the [employer] robotic system. Intraoperative plan was made and we sized the size 5 femur with a size 3 tibia and a size 10 polyethylene. After acceptance of the intraoperative plan, the distal femoral cut was made with a Navio bur. The size 5, 4-in-1 cutting block was placed and the distal femoral cuts were made. Attention was then turned to the tibia. Remainder of the menisci removed with Bovie cautery. Tibial resection was made after placing the tibial resection guide using the Navio for placement. After this, flexion and extension gaps were checked and found to have good balance in flexion and extension both medially and laterally. Tibia was sized, found to be a size 3. Size 3 tibial trial was placed, pinned and punched. Size 5 femoral trial was placed and box cut was made. We began trial with a size 10 and then a size 11 polyethylene. Size 11 had the best stability throughout range of motion medially and laterally. A 9 mm was resected from the posterior surface of the patella and a size 32 patellar trial button was placed. Knee was taken through range of motion, found to be stable, found to have good patellar tracking. After this, trial components were removed. Bony ends were thoroughly irrigated with normal saline. Final size 3 tibia, size 5 Journey II BCS Oxinium femur and a size 32 patella were cemented into place using standard cementation techniques. While the cement cured, a periarticular injection consisting of morphine, ropivacaine, epinephrine, Toradol was placed around the knee joint capsule. After the cement cured, tourniquet was deflated. Hemostasis was obtained with Bovie cautery. The knee was then trialed with a size 12 polyethylene since she hyperextended a bit with the size 11. Size 12 had the best fit and a final size 12 polyethylene was placed. A gram of vancomycin was placed deep in the joint. Fascia was closed with 0 Vicryl, skin was closed with 2-0 Vicryl, skin staple and a SUSIE [address] [address] OPERATIVE REPORT Name: FLOYD VEGA Room #: 444-P DIS IN .R.#: [id number] Admission: 07/06/19 Attend Phys: Chris Holman MD Discharge: 07/07/19 Date of : 58 Report #: [id number] dressing was applied. The patient tolerated this procedure well, taken to recovery room under care of anesthesia postoperatively. <ELECTRONICALLY SIGNED> By: Chris Holman MD 07/13/19 1228 1520 1759 Chris Holman MD /nt
== END 2019-07-07 14:51 | disposition home or self-care (01) | DRG 470 ==
LOC: TBA 10:50 → 4S 10:50 → PRE 11:30 → TBA 12:29 → 4S 15:00 → TBA 22:58 → ENTRNSPT 07-07 14:41 → EDTRNSPTSTS 07-07 14:44 → 4S 07-07 14:51
PROVIDERS: ADMIT Orthopaedic Surgery
PROC: 8E0Y0CZ Robotic Assisted Procedure of Lower Extremity, Open Approach (ICD-10-PCS; principal; 2019-07-06)
PROC: 0SRC0J9 Replacement of Right Knee Joint with Synthetic Substitute, Cemented, Open Approach (ICD-10-PCS; principal; 2019-07-06)
DX: M17.11 Unilateral primary osteoarthritis, right knee (principal); Z68.41 Body mass index [BMI] 40.0-44.9, adult; E66.01 Morbid (severe) obesity due to excess calories; F31.9 Bipolar disorder, unspecified; G47.33 Obstructive sleep apnea (adult) (pediatric); E11.9 Type 2 diabetes mellitus without complications; J30.2 Other seasonal allergic rhinitis; Z98.84 Bariatric surgery status; Z79.899 Other long term (current) drug therapy; Z79.82 Long term (current) use of aspirin; Z79.891 Long term (current) use of opiate analgesic; Z87.891 Personal history of nicotine dependence
CPT/HCPCS: 10102; 50010; 50101; 50415; 50954; 51130; 51225; 51320; 51412; 52001; 53000; 53078; 55372; 56527; 56528; 57095; 57103; 57110; 57127; 57180; 62110; 62900; 70005